=== PATIENT | female | born 1955 | race Caucasian/White ===

== ENCOUNTER 2020-10-07 06:49 | Inpatient (IN) | payer MEDICARE, OTHER ==
[~2020-10-07] VITALS: Ht 172.7 cm; Wt 127.0 kg
[~2020-10-07 06:49] MED LIST: NOHOMEMEDICATIONS
[2020-10-07] MEDS ORDERED: COQ-1030 MG PO (07:20)
[2020-10-07] MEDS ORDERED: BOWEL DETOX (07:21)
[2020-10-07 08:00] VITALS: BP 130/60
[2020-10-07 13:40] VITALS: BP 123/81
--- NOTE | 2020-10-07 17:54 | NUR ---
pt transfered to room 304 at 1340. A&OX 4, PWD. LUNGS CLEAR, HEART TONES REGULAR. +BS X 4 QUADS. PEDAL PULSES PRESENT. RIGHT MEXPILEX TO KNEE, C, D & I. TEDS ON KAMRAN LEG. SCD'S (CALFS) ON KAMRAN LEGS. PT SITTING ON SIDE OF BED AT 1700 AND TOLERATED IT WELL. C/O PAIN 7/10 AND 2 OXY PAIN PILLS GIVEN PO. IV LEFT FORE ARM 1/2 NS AT 80MLS/HR INTACT AND INFUSING WITHOUT DIFFICULTY. WILL CONTINUE TO MONITOR. CALL LIGHT WITHIN REACH. AT BEDSIDE.
--- NOTE | 2020-10-07 18:18 | OP ---
[address] [address] OPERATIVE REPORT Name: SOPHIE WEBB Room: [address] Christian#: [id number] Admission: 10/07/20 Attend Phys: Byron Ayala DO Discharge: Date of : 53 Report #: [id number] THIS REPORT FOR: //name// cc: Dominique Green MD, Crystal L. MD ~ CC: Dominique Ayala DICTATED BY: Bandar Chávez DO DATE OF SERVICE: 10/07/2020 PREOPERATIVE DIAGNOSIS: Severe degenerative joint disease, right knee. POSTOPERATIVE DIAGNOSIS: Severe degenerative joint disease, right knee. PROCEDURE PERFORMED: Right total knee arthroplasty utilizing the [employer] Vanguard total knee system with the following implants: 1. A size 70 mm cemented, cruciate retained femoral component. 2. A size 67.5 mm cemented, cruciate retained keeled tibial baseplate. 3. A size 31 mm 3 peg all polyethylene cemented patella. 4. A size 12 mm anterior stabilized polyethylene tibial bearing. SURGEON: Byron Ayala DO. HONING JOB SETTER: 1. Bandar Chávez DO. 2. Bandar Harkins DO. ANESTHESIA: Spinal with a local field supplementation and peripheral nerve block. ESTIMATED BLOOD LOSS: 200 mL. ANTIBIOTICS: 3 g of Ancef given IV 1 hour prior to incision. DRAINS: None. SPECIMENS: None. COMPLICATIONS: None. CONDITION: Stable to PACU. TOURNIQUET TIME: 22 minutes at 300 mmHg while cementing. [facility] [address] [place] [address] OPERATIVE REPORT Name: SOPHIE WEBB Room: [address] Christian#: [id number] Admission: 10/07/20 Attend Phys: Byron Ayala DO Discharge: Date of : 53 Report #: [id number] DISPOSITION: PACU to medical/surgical floor. INDICATIONS FOR PROCEDURE: The patient is a pleasant 65-year-old female who has an ongoing right knee pain, weakness for greater than 3 months that was refractory to conservative care, rest, ice, nonsteroidal anti-inflammatories, activity modification and corticosteroid injections. She was subsequently diagnosed with severe degenerative joint disease of the right knee and recommended to undergo right total knee arthroplasty. Therefore, the risks, benefits, treatment options, alternatives, and indications were discussed with the patient. Risks include but not limited to damage to surrounding neurovascular structures, continued pain, continued bleeding, need for repeat surgery, wound dehiscence, infection, DVT, PE, as well as hearing complications of anesthesia. The patient understands the risks and wished to proceed with surgery. DESCRIPTION OF PROCEDURE: The patient was seen in the preoperative holding area where consent was obtained and signed. Right lower extremity was marked and initialed. She was then transferred back to the operative suite, placed supine on the operating table. She was given the benefit of spinal anesthetic and then a well-padded tourniquet was applied to the right upper thigh. Leg positioning devices were then placed in appropriate position and the right lower extremity was then sterilely prepped utilizing Hibiclens scrub followed by alcohol rinse, then ChloraPrep x 2 and draped free in normal sterile fashion. Timeout was then held indicating appropriate patient, procedure to be performed, operative site, operating surgeon, preoperative antibiotics and all in attendance were in agreeance. Next, surgery began with a midline incision with a 10 blade scalpel through skin and subcutaneous tissue down to the level of the knee capsule. Next, a standard parapatellar arthrotomy was subsequently performed with a second clean scalpel blade. The patella was then everted and the knee was hyperflexed to 115 degrees. Medial sleeve was then elevated and anterior horns of medial and lateral menisci were then subsequently excised. ACL and PCL subsequently excised at this time as well. The infrapatellar fat pad was then subsequently excised as well. Probe retractors were placed and then an entry reamer was placed over the anterior aspect of the distal horn of the femur approximately 1 cm anterior to the PCL insertion. This was driven intramedullary. Intramedullary distal femoral cutting block was then placed in appropriate position and set to resect 11 mm with 5 degrees of valgus. This was pinned in appropriate position. Then, a cut was then made utilizing the capture block. Excess bone was subsequently removed. A block was then subsequently removed. The pins remained in place. Next, attention was directed to the tibia where the extramedullary tibial alignment guide was placed in appropriate position referencing medial one-third of the tibial tubercle, tibial crest as well as into the ankle. It was then set to resect 10 mm off the high lateral side. This was pinned into position and then brought up 2 mm utilizing the block. Appropriate cut was then made through the capture block protecting the medial and lateral collateral ligaments as well as posterior capsular [address] [address] OPERATIVE REPORT Name: SOPHIE WEBB Room: [address] Christian#: [id number] Admission: 10/07/20 Attend Phys: Byron JohannyLacey Ayala DO Discharge: Date of : 53 Report #: [id number] structures. Next, tibial bone cut was then subsequently removed. The block was removed and pins remained in place. Knee was brought into full extension and 10 mm resection block was placed in appropriate position and determined to be allowed full extension as well as symmetric medial and lateral gaps. Therefore, pins were then subsequently removed. Knee was then hyperflexed and then the femur was then sized to 70 mm. A 3-degree external rotation, drill holes were then subsequently drilled and the 4-in-1 cutting block was malleted in appropriate position. This was then held in appropriate position with pins. Then, the cuts were made sequentially through the capture block. Excess bone was subsequently removed and the block was subsequently removed. Next, the remnant of the medial and lateral menisci as well as ACL and PCL were excised. Tibia was then sized to a size 67.5 mm and then pinned in appropriate position and rotation. A trial femur was then placed into position and multiple trial bearing was then trialled with a 12 mm allowing full extension, flexion and less than 3 mm in the posterior excursion, mid flexion as well as symmetric medial and lateral gaps. Patella was then cut utilizing the reamer with the 51 mm reamer allowing the appropriate size. Once the cut was then made, patella was then sized to a 31 mm and then 3 peg drill holes were then subsequently drilled followed by placing the trial patella. Knee was taken through range of motion with adequate tracking of the patella throughout range of motion. Next, the trial components were then subsequently removed and the bone was then thoroughly irrigated with a Pulsavac. Cement was mixed and then small amount was placed on the back of the implant and it was then pressurized into the interstices of the bone. Final implants were malleted in appropriate position with excess cement subsequently removed. A final trial with a 12 mm poly was then done and therefore, the final 12 mm poly was subsequently thrown and then malleted on a cleansed and dry tray with a locking bar placed in appropriate position. The patella was then placed in appropriate position and knee was then flexed to 90 degrees. Tourniquet was let down. Hemostasis was obtained with direct pressure and electrocautery followed by 1 gram of vancomycin was sprinkled into the wound. Quad and capsule were then closed utilizing #1 Vicryl in [id number] interrupted fashion followed by running #1 Stratafix. Skin was then closed utilizing a 2-0 Monocryl in an inverted interrupted subcuticular stitches followed by running 3-0 Stratafix. Skin glue and then Mepilex were then subsequently applied. Sponge, needle counts correct x 2. Dr. Ayala was present for all critical aspects of the case. The patient was then transported back to PACU in normal stable condition. <ELECTRONICALLY SIGNED> By: Byron Ayala DO 10/07/20 1818 [id number] Ayala DO /jeremy
[2020-10-07 20:11] VITALS: BP 155/68
[2020-10-08] VITALS (8 sets, daily range): BP systolic 124–179; BP diastolic 56–81
[2020-10-08 04:28] LABS: HEMATOCRIT 35.7 % (37.0-47.0); HEMOGLOBIN 11.9 gm/dL (12.0-15.0)
[2020-10-08] MEDS ORDERED: ELIQUIS5 MG PO (12:20)
[2020-10-08] MEDS ORDERED: OXYCODONE HCL 55 MG PO (12:20)
[2020-10-08] MEDS ORDERED: COLACE 100 MG100 MG PO (12:20)
[2020-10-08] MEDS ORDERED: FISH OIL 1,0001 EAC9 PO (12:46)
--- NOTE | 2020-10-08 14:21 | NUR ---
Pt is A&O. Resides at home with her . Normally active and independent. Pt has a walker that she can use PRN. No hx of HH or SNF. Plan is home at ok, with outpt therapy at [facility] p:[phone] f:[phone]. CM faxed referral and outpt therapy orders. Pt to work with therapy today, Pt hopeful that she will be able to dc to home today. [facility] called in Eliquis prescription.
--- NOTE | 2020-10-08 16:00 | NUR ---
CM CALLED PRESCRIPTION FOR ELIQUIS WRITTEN EARLIER TO PTS PHARMACY. CALLED BACK AT THIS TIME TO GET COPAY. COPAY IS $232. CM SPOKE WITH PTS ON PHONE. HE WILL DISCUSS WITH AND LET NURSE KNOW IF THEY CANNOT AFFORD THIS. IF THEY CANNOT EXPLAINED NURSE CAN ASK FOR A DIFFERENT BLOOD THINNER FOR DISCHARGE. MARK GAY NOTIFIED.
--- NOTE | 2020-10-08 16:35 | NUR ---
PT REPORTS CONTINUED PAIN. PRN PAIN MEDICATION GIVEN PER PT REQUESTS. WORKED WITH THERAPIES TODAY. UP TO CHAIR. ON Q PUMP IN PLACE.
--- NOTE | 2020-10-09 04:15 | NUR ---
PT SLEPT WELL ALL SHIFT, SHE DID NOT REQUEST ANY PAIN MEDICATION. NO REPORTS OF NAUSEA OR VOMITING. MEPALEX C/D/I DEMETRIO HOSE INTACT. UP STANDBY ASSIST. ALERT AND ORIENTED, PLEASANT.
[2020-10-09 05:02] LABS: HEMATOCRIT 31.1 % (37.0-47.0); HEMOGLOBIN 10.3 gm/dL (12.0-15.0)
[2020-10-09 07:35] VITALS: BP 130/54
[2020-10-09] MEDS ORDERED: PAIN RELIEVER500 MG PO (09:17)
[2020-10-09] MEDS ORDERED: NEURONTIN 300M300 M2 PO (09:17)
[2020-10-09 11:03] VITALS: BP 179/81
[2020-10-09] MEDS ORDERED: ASPIRIN325 PO (11:36)
--- NOTE | 2020-10-09 14:08 | NUR ---
PT GIVEN DISCHARGE INFORMATION, CARE NOTES, AND PRESCRIPTIONS. PT TO DO OUTPATIENT THERAPY. IV REMOVED. PT BELONGINGS GATHERED. PT LEFT VIA WHEELCHAIR WITH NURSING STAFF TO HOME. FALL RISK PRECAUTIONS IN PLACE. HOURLY ROUNDING COMPLETED.
== END 2020-10-09 14:19 | disposition home or self-care (01) | DRG 470 ==
LOC: M.PRE → M.TBA 06:49 → M.3W 06:49 → M.PRE 07:49 → M.3W 13:58 → M.PRE 14:28 → M.3W 10-08 15:00
PROVIDERS: Orthopaedic Surgery; ADMIT Internal Medicine; ATTEND Internal Medicine
DX: M17.11 Unilateral primary osteoarthritis, right knee (principal); C50.019 Malignant neoplasm of nipple and areola, unspecified female breast; Z90.711 Acquired absence of uterus with remaining cervical stump; Z90.11 Acquired absence of right breast and nipple; Z92.21 Personal history of antineoplastic chemotherapy; Z87.891 Personal history of nicotine dependence; Z79.899 Other long term (current) drug therapy